=== PATIENT | male | born 1960 | race African-American/Black ===

== ENCOUNTER 2017-12-10 22:35 | Emergency (ER) | payer BC ==
[~2017-12-10] VITALS: Ht 175.3 cm; Wt 75.0 kg
[2017-12-11 02:28] VITALS: BP 143/91
== END 2017-12-11 02:34 | disposition home or self-care (01) ==
LOC: ER 22:35
DX: B34.9 Viral infection, unspecified (principal)
CPT/HCPCS: 71045; 99283; Z7610